=== PATIENT | female | born 1985 | race Two or more races ===

== ENCOUNTER 2016-12-16 19:39 | Emergency (ER) | payer OTHER ==
--- NOTE | ~2016-12-16 | CR141 ---
[facility] A Service of [facility] RADIOLOGY TEXT RESULTS PATIENT: BRII JOYCE LOCATION: [facility] : 85 UNIT #: [id number] AGE: [address]: Viviana Richards APRN SEX: F ORDER DR: [id number] [facility] [address] [place], [place] [address] [id number] MR#: [id number] Acc #: [id number] NAME: BRII JOYCE : 1985 SEX: F STUDY DATE/TIME: 12/16/2016 21:22 UNIT: [facility] ROOM: STUDY DESCRIPTION: CR Hand Min 3 Views Lt Attending Physician: Viviana Richards A.P.R.N. Ordering Physician: Logan Barrera M.D. Primary Care Physician: No Primary Care Physician MEDICAL IMAGING REPORT This report is preliminary unless electronic signature is present EXAM Left hand, 3 views; 12/16/2016. HISTORY Left hand pain and swelling status post fall 12/16/2016. FINDINGS Three views of the left hand demonstrate ill-defined lucencies at the base of the third and fourth middle phalanges suspicious for fractures. No other fracture or dislocation is seen. The bones are normally mineralized. Mild soft tissue swelling is seen about the left hand. IMPRESSION There are lucencies at the volar bases of the third and fourth middle phalanges suggesting fractures. Soft tissue swelling left hand. Dictated by... Satya Mae M.D. THIS IS AN ELECTRONICALLY VERIFIED REPORT Satya Mae M.D. at 12/17/2016 2:20 PM ONIEL/rizwan TD: 12/17/2016 01:23 JOB #: [id number] MEDICAL IMAGING REPORT Page 1 of 1 COPY
== END 2016-12-16 22:40 | disposition home or self-care (01) ==
LOC: CED 19:39
DX: S60.032A Contusion of left middle finger without damage to nail, initial encounter (principal); S60.042A Contusion of left ring finger without damage to nail, initial encounter; W07.XXXA Fall from chair, initial encounter; Y92.009 Unspecified place in unspecified non-institutional (private) residence as the place of occurrence of the external cause
CPT/HCPCS: 29130; 73130; 99283